=== PATIENT | female | born 1985 | race Caucasian/White ===

== ENCOUNTER 2017-11-28 19:31 | Emergency (ER) | payer OTHER ==
[~2017-11-28] VITALS: Ht 165.1 cm; Wt 120.2 kg
[~2017-11-28 19:31] MED LIST: ALBU.083IS IH; ALBU90OI INH; AMOX500 PO; CIPR500 PO; CLON1 PO; CYCL10 PO; Cymbalta30 MG; DULO30 PO; FLUSAL5005 INH; HYDACE5 PO; HYDMOR4 PO; KETO10 PO; Keflex500 MG PO; LOSA50 PO; LOSARTAN; NAPR500 PO; NAPR550 PO; Naprosyn500 MG PO; Norco 10-325 T1 EACH PO; Norco 5-325 Ta1 EACH PO; ONDA4ODT MM; Omeprazole20 M1; PHENA200 PO; PRODEXEL PO; PSEU120ER PO; Percocet 5-3251 EACH PO; Prednisone20 MG PO; RXHYDMOR2 PO; RXONDA4ODT MM; Ventolin Soln3 ML; Ventolin/Prove6.7 GM INH; Zithromax250 MG PO
[2017-11-28] MEDS ORDERED: BENZ100A PO (20:33)
== END 2017-11-28 20:40 | disposition home or self-care (01) ==
LOC: ER 19:31
DX: J11.1 Influenza due to unidentified influenza virus with other respiratory manifestations (principal); J45.909 Unspecified asthma, uncomplicated; F41.9 Anxiety disorder, unspecified; F32.9 Major depressive disorder, single episode, unspecified; I10 Essential (primary) hypertension; Z88.8 Allergy status to other drugs, medicaments and biological substances; Z91.018 Allergy to other foods; Z79.899 Other long term (current) drug therapy; Z79.52 Long term (current) use of systemic steroids
CPT/HCPCS: 99283

== ENCOUNTER 2018-02-16 12:51 | Emergency (ER) | payer OTHER ==
[~2018-02-16] VITALS: Ht 165.1 cm; Wt 145.2 kg
[~2018-02-16 12:51] MED LIST changes: +BENZ100A PO
[2018-02-16] MEDS ORDERED: GABA300 PO (13:12)
[2018-02-16] MEDS ORDERED: HYDHCL25 PO (13:13)
[2018-02-16 13:23] LABS: Source, Urine Peds U Bag
[2018-02-16 13:33] LABS: Appearance, Urine Hazy (Clear); Bilirubin, Urine Neg (Neg); Blood, Urine 1+ (Neg); Color, Urine Yellow (P-Yellow); Glucose Qualitative, Urine Neg (Neg); Ketones, Urine Neg (Neg); Leukocyte Esterase, Urine 1+ (Neg); Nitrite, Urine Pos (Neg); Protein, Urine Neg (Neg); Specific Gravity, Urine 1.015 (1.003-1.022); Urobilinogen, Urine NORM (Normal)
[2018-02-16 13:34] LABS: BASOPHILS ABSOLUTE AUTO 0.06 K/mm3 (0.00-0.23); BASOPHILS PERCENT AUTO 0 % (0-2); EOSINOPHILS PERCENT AUTO 1 % (0-6); Hematocrit 38.6 % (33.0-51.0); Hemoglobin 11.2 g/dL (11.5-16.0); IMMATURE GRAN ABSOLUTE AUTO 0.13 K/mm3 (0.00-0.10); IMMATURE GRAN PERCENT AUTO 1 % (0-1); LYMPHOCYTES ABSOLUTE AUTO 3.17 K/mm3 (0.84-5.20); LYMPHOCYTES PERCENT AUTO 18 % (21-46); MONOCYTES ABSOLUTE AUTO 0.97 K/mm3 (0.16-1.47); MONOCYTES PERCENT AUTO 5 % (4-13); Mean Corpuscular HGB 24.1 pg (26.0-34.0); Mean Corpuscular Volume 83 fL (80-100); Mean Platelet Volume 9.5 fL (9.1-12.4); NEUTROPHILS ABSOLUTE AUTO 13.51 K/mm3 (1.96-9.15); NEUTROPHILS PERCENT AUTO 75 % (41-73); Platelet Count 425 K/mm3 (150-400); RDW Coefficient Variation 15.8 % (11.7-14.2); RDW Standard Deviation 47.5 fL (35.1-46.3); Red Blood Cell Count 4.65 M/mm3 (3.80-5.20); White Blood Cell Count 17.94 K/mm3 (4.00-11.30)
[2018-02-16 13:50] LABS: Alanine Aminotransfer (ALT/SGP 17 U/L (12-78); Albumin/Globulin Ratio 0.7 (0.8-1.8); Alk Phos 115 U/L (50-136); Anion Gap 4 mmol/L (6-16); Aspartate Aminotrans (AST/SGOT 5 U/L (12-37); Bilirubin, Total 0.2 mg/dL (0.1-1.0); Blood Urea Nitrogen 8 mg/dL (8-24); Bun/Creatinine Ratio 12.5 (12.0-20.0); CO2, Blood 29 mmol/L (21-32); Calcium, Blood 8.5 mg/dL (8.5-10.1); Chloride, Blood 105 mmol/L (98-108); Creatinine, Blood 0.64 mg/dL (0.40-1.00); Globulin, Blood 4.3 g/dL (2.2-4.0); Glomerular Filtration Rate >60 (60-); Glucose, Blood 102 mg/dL (70-99); Potassium, Blood 3.8 mmol/L (3.5-5.5); Sodium, Blood 138 mmol/L (136-145); Total Protein, Blood 7.3 g/dL (6.4-8.2); Troponin I <0.015 ng/mL (0.000-0.040)
[2018-02-16 14:09] LABS: Bacteria Many /hpf; Squamous Epithelial Cells Mod /hpf (Few)
[2018-02-16] MEDS ORDERED: CEPH500 PO (14:21)
[2018-02-16] MEDS ORDERED: Norco 5-325 Ta1 EACH PO (14:21)
== END 2018-02-16 15:08 | disposition home or self-care (01) ==
LOC: ER 12:51
PROVIDERS: Emergency Medicine
DX: R07.89 Other chest pain (principal); F41.9 Anxiety disorder, unspecified; J06.9 Acute upper respiratory infection, unspecified; N39.0 Urinary tract infection, site not specified; J45.909 Unspecified asthma, uncomplicated; F32.9 Major depressive disorder, single episode, unspecified; I10 Essential (primary) hypertension; Z88.8 Allergy status to other drugs, medicaments and biological substances; Z91.018 Allergy to other foods; Z79.899 Other long term (current) drug therapy
CPT/HCPCS: 71046; 80053; 81001; 81025; 84484; 85025; 87077; 87086; 87186; 93005; 93010; J3010; J7030

== ENCOUNTER 2018-05-23 09:22 | Emergency (ER) | payer OTHER ==
[~2018-05-23] VITALS: Ht 165.1 cm; Wt 117.9 kg
[~2018-05-23 09:22] MED LIST changes: +CEPH500 PO; +GABA300 PO; +HYDHCL25 PO
[2018-05-23] MEDS ORDERED: DULO60 (09:51)
[2018-05-23] MEDS ORDERED: QVAR REDIHALE10.6 G1 IH (09:51)
[2018-05-23] MEDS ORDERED: HYDCHL12.5 PO (09:51)
[2018-05-23 10:48] LABS: BASOPHILS ABSOLUTE AUTO 0.05 K/mm3 (0.00-0.23); BASOPHILS PERCENT AUTO 0 % (0-2); EOSINOPHILS ABSOLUTE AUTO 0.11 K/mm3 (0.00-0.68); EOSINOPHILS PERCENT AUTO 1 % (0-6); Hematocrit 40.3 % (33.0-51.0); Hemoglobin 11.5 g/dL (11.5-16.0); IMMATURE GRAN ABSOLUTE AUTO 0.07 K/mm3 (0.00-0.10); IMMATURE GRAN PERCENT AUTO 1 % (0-1); LYMPHOCYTES ABSOLUTE AUTO 2.71 K/mm3 (0.84-5.20); LYMPHOCYTES PERCENT AUTO 18 % (21-46); MONOCYTES ABSOLUTE AUTO 0.69 K/mm3 (0.16-1.47); MONOCYTES PERCENT AUTO 5 % (4-13); Mean Corpuscular HGB Conc 28.5 g/dL (31.5-36.5); Mean Corpuscular Volume 80 fL (80-100); Mean Platelet Volume 9.4 fL (9.1-12.4); NEUTROPHILS ABSOLUTE AUTO 11.52 K/mm3 (1.96-9.15); NEUTROPHILS PERCENT AUTO 76 % (41-73); Platelet Count 395 K/mm3 (150-400); RDW Standard Deviation 50.8 fL (35.1-46.3); Red Blood Cell Count 5.01 M/mm3 (3.80-5.20); White Blood Cell Count 15.15 K/mm3 (4.00-11.30)
[2018-05-23 11:18] LABS: Alanine Aminotransfer (ALT/SGP 16 U/L (12-78); Albumin, Blood 3.1 g/dL (3.4-5.0); Albumin/Globulin Ratio 0.8 (0.8-1.8); Alk Phos 108 U/L (50-136); Anion Gap 8 mmol/L (6-16); Aspartate Aminotrans (AST/SGOT 8 U/L (12-37); Bilirubin, Total 0.4 mg/dL (0.1-1.0); Blood Urea Nitrogen 12 mg/dL (8-24); CO2, Blood 28 mmol/L (21-32); Calcium, Blood 8.2 mg/dL (8.5-10.1); Chloride, Blood 101 mmol/L (98-108); Creatinine, Blood 0.75 mg/dL (0.40-1.00); Glomerular Filtration Rate >60 (60-); Glucose, Blood 110 mg/dL (70-99); Sodium, Blood 137 mmol/L (136-145); Total Protein, Blood 7.1 g/dL (6.4-8.2)
== END 2018-05-23 12:14 | disposition home or self-care (01) ==
LOC: ER 09:22
PROVIDERS: Nurse Practitioner Family
DX: R55 Syncope and collapse (principal); F41.9 Anxiety disorder, unspecified; Z88.8 Allergy status to other drugs, medicaments and biological substances; Z91.018 Allergy to other foods; Z79.899 Other long term (current) drug therapy; J45.909 Unspecified asthma, uncomplicated; F32.9 Major depressive disorder, single episode, unspecified; I10 Essential (primary) hypertension
CPT/HCPCS: 36415; 71046; 80053; 84443; 85025; 93005; 93010

== ENCOUNTER → 2019-05-09 | Outpatient (CLI) | payer OTHER ==
[~2019-05-09] MED LIST changes: +DULO60; +HYDCHL12.5 PO; +QVAR REDIHALE10.6 G1 IH
[2019-05-10 14:07] LABS: HPV 16 Negative (Negative); HPV 18 Negative (Negative); HPV OTHER HR TYPES Positive (Negative)
== END | disposition home or self-care (01) ==
LOC: LAB SHORT 13:14 → LAB 13:14
PROVIDERS: Family Medicine
DX: Z01.419 Encounter for gynecological examination (general) (routine) without abnormal findings (principal)
CPT/HCPCS: 87624; 87625; G0145

== ENCOUNTER → 2019-07-10 | Outpatient (CLI) | payer OTHER | END | disposition home or self-care (01) | LOC: PLD 07:55 → LAB SHORT 07:55 | DX: R87.810 Cervical high risk human papillomavirus (HPV) DNA test positive (principal) | CPT/HCPCS: 88305 ==

== ENCOUNTER → 2020-03-17 | Outpatient (CLI) | payer OTHER | END | disposition home or self-care (01) | LOC: LAB SHORT 15:28 → LAB 15:28 | DX: J02.9 Acute pharyngitis, unspecified (principal) | CPT/HCPCS: 87081 ==

== ENCOUNTER 2020-05-22 19:06 | Emergency (ER) | payer OTHER ==
[~2020-05-22] VITALS: Ht 162.6 cm; Wt 127.0 kg
[2020-05-22 21:27] LABS: BASOPHILS ABSOLUTE AUTO 0.06 K/mm3 (0.00-0.23); BASOPHILS PERCENT AUTO 0 % (0-2); EOSINOPHILS ABSOLUTE AUTO 0.17 K/mm3 (0.00-0.68); EOSINOPHILS PERCENT AUTO 1 % (0-6); Hematocrit 38.6 % (33.0-51.0); Hemoglobin 10.9 g/dL (11.5-16.0); IMMATURE GRAN ABSOLUTE AUTO 0.07 K/mm3 (0.00-0.10); IMMATURE GRAN PERCENT AUTO 0 % (0-1); LYMPHOCYTES ABSOLUTE AUTO 3.29 K/mm3 (0.84-5.20); LYMPHOCYTES PERCENT AUTO 19 % (21-46); MONOCYTES PERCENT AUTO 5 % (4-13); Mean Corpuscular HGB 21.5 pg (26.0-34.0); Mean Corpuscular HGB Conc 28.2 g/dL (31.5-36.5); Mean Corpuscular Volume 76 fL (80-100); Mean Platelet Volume 9.2 fL (9.1-12.4); NEUTROPHILS ABSOLUTE AUTO 13.06 K/mm3 (1.96-9.15); NEUTROPHILS PERCENT AUTO 75 % (41-73); Platelet Count 366 K/mm3 (150-400); RDW Coefficient Variation 18.3 % (11.7-14.2); RDW Standard Deviation 49.9 fL (35.1-46.3); Red Blood Cell Count 5.06 M/mm3 (3.80-5.20); White Blood Cell Count 17.45 K/mm3 (4.00-11.30)
[2020-05-22 21:46] LABS: Anion Gap 6 mmol/L (6-16); Blood Urea Nitrogen 9 mg/dL (8-24); Bun/Creatinine Ratio 10.9 (12.0-20.0); CO2, Blood 29 mmol/L (21-32); Calcium, Blood 8.5 mg/dL (8.5-10.1); Chloride, Blood 104 mmol/L (98-108); Creatinine, Blood 0.82 mg/dL (0.40-1.00); Glomerular Filtration Rate >60 (60-); Glucose, Blood 91 mg/dL (70-99); Potassium, Blood 3.5 mmol/L (3.5-5.5); Sodium, Blood 139 mmol/L (136-145); Troponin I <0.015 ng/mL (0.000-0.040)
[2020-05-22] MEDS ORDERED: Vibramycin100 MG PO (23:13)
[2020-05-22] MEDS ORDERED: DELTASONE20 MG PO (23:13)
== END 2020-05-23 00:15 | disposition home or self-care (01) ==
LOC: ER 19:06
PROVIDERS: Student in an Organized Health Care Education/Training Program
DX: J18.9 Pneumonia, unspecified organism (principal); Z20.828 Contact with and (suspected) exposure to other viral communicable diseases; Z88.8 Allergy status to other drugs, medicaments and biological substances; Z91.018 Allergy to other foods; Z79.899 Other long term (current) drug therapy; I10 Essential (primary) hypertension; J45.909 Unspecified asthma, uncomplicated; F41.9 Anxiety disorder, unspecified; F32.9 Major depressive disorder, single episode, unspecified
CPT/HCPCS: 36415; 71046; 80048; 83880; 84484; 85025; 94640; 99285-25; U0002

== ENCOUNTER → 2020-08-18 | Outpatient (CLI) | payer OTHER ==
[~2020-08-18] MED LIST changes: +DELTASONE20 MG PO; +Vibramycin100 MG PO
== END | disposition home or self-care (01) ==
LOC: LAB SHORT 11:30 → LAB 11:30
DX: J02.9 Acute pharyngitis, unspecified (principal)
CPT/HCPCS: 87081

== ENCOUNTER 2020-09-22 08:02 | Emergency (ER) | payer OTHER ==
[~2020-09-22] VITALS: Ht 162.6 cm; Wt 154.2 kg
[2020-09-22 08:50] LABS: BASOPHILS ABSOLUTE AUTO 0.05 K/mm3 (0.00-0.23); BASOPHILS PERCENT AUTO 0 % (0-2); EOSINOPHILS ABSOLUTE AUTO 0.08 K/mm3 (0.00-0.68); EOSINOPHILS PERCENT AUTO 1 % (0-6); Hematocrit 37.6 % (33.0-51.0); Hemoglobin 10.4 g/dL (11.5-16.0); IMMATURE GRAN ABSOLUTE AUTO 0.06 K/mm3 (0.00-0.10); IMMATURE GRAN PERCENT AUTO 0 % (0-1); LYMPHOCYTES ABSOLUTE AUTO 2.54 K/mm3 (0.84-5.20); LYMPHOCYTES PERCENT AUTO 19 % (21-46); MONOCYTES ABSOLUTE AUTO 0.62 K/mm3 (0.16-1.47); MONOCYTES PERCENT AUTO 5 % (4-13); Mean Corpuscular HGB Conc 27.7 g/dL (31.5-36.5); Mean Corpuscular Volume 76 fL (80-100); Mean Platelet Volume 9.1 fL (9.1-12.4); NEUTROPHILS ABSOLUTE AUTO 10.29 K/mm3 (1.96-9.15); NEUTROPHILS PERCENT AUTO 76 % (41-73); Platelet Count 383 K/mm3 (150-400); RDW Coefficient Variation 18.7 % (11.7-14.2); RDW Standard Deviation 50.7 fL (35.1-46.3); Red Blood Cell Count 4.95 M/mm3 (3.80-5.20); White Blood Cell Count 13.64 K/mm3 (4.00-11.30)
[2020-09-22 09:08] LABS: Alanine Aminotransfer (ALT/SGP 13 U/L (12-78); Albumin, Blood 3.1 g/dL (3.4-5.0); Albumin/Globulin Ratio 0.8 (0.8-1.8); Alk Phos 96 U/L (50-136); Anion Gap 4 mmol/L (6-16); Aspartate Aminotrans (AST/SGOT 9 U/L (12-37); Bilirubin, Total 0.2 mg/dL (0.1-1.0); Blood Urea Nitrogen 8 mg/dL (8-24); Bun/Creatinine Ratio 12.7 (12.0-20.0); CO2, Blood 29 mmol/L (21-32); Calcium, Blood 8.4 mg/dL (8.5-10.1); Chloride, Blood 108 mmol/L (98-108); Creatinine, Blood 0.63 mg/dL (0.40-1.00); Globulin, Blood 3.9 g/dL (2.2-4.0); Glomerular Filtration Rate >60 (60-); Glucose, Blood 146 mg/dL (70-99); Potassium, Blood 3.9 mmol/L (3.5-5.5); Sodium, Blood 141 mmol/L (136-145); Troponin I <0.015 ng/mL (0.000-0.040)
[2020-09-22] MEDS ORDERED: TOPI50 PO (09:57)
[2020-09-22] MEDS ORDERED: RISP.5 PO (09:57)
[2020-09-22] MEDS ORDERED: PRED20 PO (12:26)
== END 2020-09-22 13:16 | disposition home or self-care (01) ==
LOC: ER 08:02
PROVIDERS: Emergency Medicine
DX: R07.9 Chest pain, unspecified (principal); J45.909 Unspecified asthma, uncomplicated; F41.9 Anxiety disorder, unspecified; F32.9 Major depressive disorder, single episode, unspecified; Z79.51 Long term (current) use of inhaled steroids; Z79.899 Other long term (current) drug therapy; Z88.8 Allergy status to other drugs, medicaments and biological substances; Z91.018 Allergy to other foods
CPT/HCPCS: 36415; 71045; 80053; 83880; 84484; 85025; 93005; 93010; 94640; 96374; 99285-25; J2930

== ENCOUNTER 2021-01-20 04:51 | Emergency (ER) | payer OTHER ==
[~2021-01-20 04:51] MED LIST changes: +PRED20 PO; +RISP.5 PO; +TOPI50 PO
[2021-01-20] MEDS ORDERED: TRAM50 PO (07:59)
== END 2021-01-20 08:10 | disposition home or self-care (01) ==
LOC: ER 04:51
DX: S06.9X9A Unspecified intracranial injury with loss of consciousness of unspecified duration, initial encounter (principal); S16.1XXA Strain of muscle, fascia and tendon at neck level, initial encounter; I10 Essential (primary) hypertension; J45.909 Unspecified asthma, uncomplicated; Z79.899 Other long term (current) drug therapy; W18.2XXA Fall in (into) shower or empty bathtub, initial encounter
CPT/HCPCS: 70450; 72125; 96374; 96375; 99283-25; 99284-25; A9270; J0780; J1200; J1885; J2405

== ENCOUNTER 2021-06-29 12:11 | Emergency (ER) | payer OTHER ==
[~2021-06-29] VITALS: Ht 160 cm; Wt 145.2 kg
[~2021-06-29 12:11] MED LIST changes: +TRAM50 PO
[2021-06-29 14:17] LABS: BASOPHILS ABSOLUTE AUTO 0.06 K/mm3 (0.00-0.23); BASOPHILS PERCENT AUTO 0 % (0-2); EOSINOPHILS ABSOLUTE AUTO 0.11 K/mm3 (0.00-0.68); EOSINOPHILS PERCENT AUTO 1 % (0-6); Hematocrit 37.4 % (33.0-51.0); Hemoglobin 10.3 g/dL (11.5-16.0); IMMATURE GRAN ABSOLUTE AUTO 0.06 K/mm3 (0.00-0.10); IMMATURE GRAN PERCENT AUTO 0 % (0-1); LYMPHOCYTES ABSOLUTE AUTO 2.45 K/mm3 (0.84-5.20); LYMPHOCYTES PERCENT AUTO 18 % (21-46); MONOCYTES ABSOLUTE AUTO 0.71 K/mm3 (0.16-1.47); MONOCYTES PERCENT AUTO 5 % (4-13); Mean Corpuscular HGB Conc 27.5 g/dL (31.5-36.5); Mean Corpuscular Volume 76 fL (80-100); Mean Platelet Volume 10.4 fL (9.1-12.4); NEUTROPHILS ABSOLUTE AUTO 10.23 K/mm3 (1.96-9.15); NEUTROPHILS PERCENT AUTO 75 % (41-73); Platelet Count 344 K/mm3 (150-400); RDW Coefficient Variation 18.4 % (11.7-14.2); RDW Standard Deviation 50.4 fL (35.1-46.3); Red Blood Cell Count 4.91 M/mm3 (3.80-5.20); White Blood Cell Count 13.62 K/mm3 (4.00-11.30)
[2021-06-29 15:06] LABS: SARS-Cov-2 (COVID-19) PCR, MMC NEGATIVE (NEGATIVE)
[2021-06-29 15:10] LABS: Alanine Aminotransfer (ALT/SGP 22 U/L (12-78); Alk Phos 94 U/L (50-136); Anion Gap 5 mmol/L (6-16); Aspartate Aminotrans (AST/SGOT 31 U/L (12-37); Bilirubin, Total 0.4 mg/dL (0.1-1.0); Blood Urea Nitrogen 9 mg/dL (8-24); Bun/Creatinine Ratio 12.5 (12.0-20.0); CO2, Blood 26 mmol/L (21-32); Calcium, Blood 8.3 mg/dL (8.5-10.1); Chloride, Blood 108 mmol/L (98-108); Creatinine, Blood 0.72 mg/dL (0.40-1.00); Glomerular Filtration Rate >60 (60-); Glucose, Blood 92 mg/dL (70-99); Potassium, Blood 4.2 mmol/L (3.5-5.5); Sodium, Blood 139 mmol/L (136-145); Troponin I <0.015 ng/mL (0.000-0.040)
[2021-06-29 15:16] LABS: Albumin/Globulin Ratio 0.8 (0.8-1.8); Globulin, Blood 3.6 g/dL (2.2-4.0); Total Protein, Blood 6.6 g/dL (6.4-8.2)
[2021-06-29] MEDS ORDERED: AZIT250 PO (16:23)
== END 2021-06-29 16:29 | disposition home or self-care (01) ==
LOC: ER 12:11
PROVIDERS: Student in an Organized Health Care Education/Training Program
DX: J18.9 Pneumonia, unspecified organism (principal); R19.7 Diarrhea, unspecified; J45.909 Unspecified asthma, uncomplicated; R11.2 Nausea with vomiting, unspecified; I10 Essential (primary) hypertension; D64.9 Anemia, unspecified; Z88.8 Allergy status to other drugs, medicaments and biological substances; Z20.822 Contact with and (suspected) exposure to COVID-19
CPT/HCPCS: 71045; 80053; 83690; 84484; 85025; 94640; 96361; 96374; 99285-25; A9270; J1885; J7030; U0004

== ENCOUNTER → 2021-08-13 | Outpatient (CLI) | payer OTHER ==
[~2021-08-13] MED LIST changes: +AZIT250 PO
[2021-08-13 18:25] LABS: BASOPHILS ABSOLUTE AUTO 0.07 K/mm3 (0.00-0.23); BASOPHILS PERCENT AUTO 0 % (0-2); EOSINOPHILS ABSOLUTE AUTO 0.11 K/mm3 (0.00-0.68); EOSINOPHILS PERCENT AUTO 1 % (0-6); Hematocrit 40.7 % (33.0-51.0); Hemoglobin 11.3 g/dL (11.5-16.0); IMMATURE GRAN ABSOLUTE AUTO 0.19 K/mm3 (0.00-0.10); IMMATURE GRAN PERCENT AUTO 1 % (0-1); LYMPHOCYTES ABSOLUTE AUTO 3.56 K/mm3 (0.84-5.20); LYMPHOCYTES PERCENT AUTO 17 % (21-46); MONOCYTES PERCENT AUTO 5 % (4-13); Mean Corpuscular HGB 20.7 pg (26.0-34.0); Mean Corpuscular HGB Conc 27.8 g/dL (31.5-36.5); Mean Corpuscular Volume 75 fL (80-100); Mean Platelet Volume 9.1 fL (9.1-12.4); NEUTROPHILS ABSOLUTE AUTO 16.24 K/mm3 (1.96-9.15); NEUTROPHILS PERCENT AUTO 77 % (41-73); Platelet Count 460 K/mm3 (150-400); RDW Coefficient Variation 19.9 % (11.7-14.2); RDW Standard Deviation 51.8 fL (35.1-46.3); Red Blood Cell Count 5.45 M/mm3 (3.80-5.20); White Blood Cell Count 21.17 K/mm3 (4.00-11.30)
[2021-08-13 18:57] LABS: Alanine Aminotransfer (ALT/SGP 26 U/L (12-78); Albumin, Blood 3.1 g/dL (3.4-5.0); Albumin/Globulin Ratio 0.8 (0.8-1.8); Alk Phos 103 U/L (50-136); Anion Gap 3 mmol/L (6-16); Aspartate Aminotrans (AST/SGOT 10 U/L (12-37); Bilirubin, Total 0.3 mg/dL (0.1-1.0); Blood Urea Nitrogen 12 mg/dL (8-24); Bun/Creatinine Ratio 18.3 (12.0-20.0); CO2, Blood 33 mmol/L (21-32); Calcium, Blood 8.8 mg/dL (8.5-10.1); Chloride, Blood 102 mmol/L (98-108); Creatinine, Blood 0.66 mg/dL (0.40-1.00); Globulin, Blood 3.9 g/dL (2.2-4.0); Glomerular Filtration Rate >60 (60-); Glucose, Blood 128 mg/dL (70-99); Potassium, Blood 3.8 mmol/L (3.5-5.5); Sodium, Blood 138 mmol/L (136-145)
== END | disposition home or self-care (01) ==
LOC: LAB 18:14 → LAB SHORT 18:14
PROVIDERS: Nurse Practitioner
DX: R06.02 Shortness of breath (principal)
CPT/HCPCS: 80053; 83880; 85025

== ENCOUNTER → 2021-08-19 | Outpatient (CLI) | payer OTHER ==
[2021-08-19 13:06] LABS: BASOPHILS ABSOLUTE AUTO 0.05 K/mm3 (0.00-0.23); BASOPHILS PERCENT AUTO 0 % (0-2); EOSINOPHILS ABSOLUTE AUTO 0.01 K/mm3 (0.00-0.68); EOSINOPHILS PERCENT AUTO 0 % (0-6); Hematocrit 37.7 % (33.0-51.0); Hemoglobin 10.4 g/dL (11.5-16.0); IMMATURE GRAN ABSOLUTE AUTO 0.23 K/mm3 (0.00-0.10); IMMATURE GRAN PERCENT AUTO 1 % (0-1); LYMPHOCYTES ABSOLUTE AUTO 1.79 K/mm3 (0.84-5.20); LYMPHOCYTES PERCENT AUTO 8 % (21-46); MONOCYTES ABSOLUTE AUTO 0.88 K/mm3 (0.16-1.47); MONOCYTES PERCENT AUTO 4 % (4-13); Mean Corpuscular HGB 20.9 pg (26.0-34.0); Mean Corpuscular HGB Conc 27.6 g/dL (31.5-36.5); Mean Corpuscular Volume 76 fL (80-100); NEUTROPHILS ABSOLUTE AUTO 18.59 K/mm3 (1.96-9.15); NEUTROPHILS PERCENT AUTO 86 % (41-73); NRBC ABSOLUTE 0.02 K/mm3 (0.00-0.02); NRBC Auto 0.1 /100 WBC (0.0-0.2); Platelet Count 401 K/mm3 (150-400); RDW Coefficient Variation 20.8 % (11.7-14.2); RDW Standard Deviation 53.9 fL (35.1-46.3); Red Blood Cell Count 4.98 M/mm3 (3.80-5.20); White Blood Cell Count 21.55 K/mm3 (4.00-11.30)
[2021-08-19 13:16] LABS: Alanine Aminotransfer (ALT/SGP 27 U/L (12-78); Albumin, Blood 3.2 g/dL (3.4-5.0); Albumin/Globulin Ratio 0.8 (0.8-1.8); Alk Phos 111 U/L (40-126); Anion Gap 5 mmol/L (6-16); Aspartate Aminotrans (AST/SGOT 13 U/L (12-37); Bilirubin, Total 0.4 mg/dL (0.1-1.0); Blood Urea Nitrogen 12 mg/dL (8-24); Bun/Creatinine Ratio 15.8 (12.0-20.0); CO2, Blood 35 mmol/L (21-32); Calcium, Blood 8.3 mg/dL (8.5-10.1); Chloride, Blood 100 mmol/L (98-108); Creatinine, Blood 0.76 mg/dL (0.40-1.00); Glomerular Filtration Rate >60 (60-); Glucose, Blood 148 mg/dL (70-99); Potassium, Blood 4.2 mmol/L (3.5-5.5); Sodium, Blood 140 mmol/L (136-145); Total Protein, Blood 7.2 g/dL (6.4-8.2)
== END | disposition home or self-care (01) ==
LOC: LAB 13:01 → LAB SHORT 13:01
PROVIDERS: Chiropractor
DX: R09.02 Hypoxemia (principal)
CPT/HCPCS: 80053; 83880; 84484; 85025; 85379

== ENCOUNTER 2022-02-27 19:53 | Emergency (ER) | payer OTHER ==
[~2022-02-27] VITALS: Ht 162.6 cm; Wt 164.2 kg
[2022-02-27 21:08] LABS: BASOPHILS ABSOLUTE AUTO 0.06 K/mm3 (0.00-0.23); BASOPHILS PERCENT AUTO 0 % (0-2); EOSINOPHILS ABSOLUTE AUTO 0.08 K/mm3 (0.00-0.68); EOSINOPHILS PERCENT AUTO 1 % (0-6); Hematocrit 39.3 % (33.0-51.0); Hemoglobin 10.9 g/dL (11.5-16.0); IMMATURE GRAN ABSOLUTE AUTO 0.13 K/mm3 (0.00-0.10); IMMATURE GRAN PERCENT AUTO 1 % (0-1); LYMPHOCYTES PERCENT AUTO 15 % (21-46); MONOCYTES ABSOLUTE AUTO 0.86 K/mm3 (0.16-1.47); MONOCYTES PERCENT AUTO 5 % (4-13); Mean Corpuscular HGB 21.2 pg (26.0-34.0); Mean Corpuscular HGB Conc 27.7 g/dL (31.5-36.5); Mean Corpuscular Volume 77 fL (80-100); Mean Platelet Volume 9.5 fL (9.1-12.4); NEUTROPHILS ABSOLUTE AUTO 13.65 K/mm3 (1.96-9.15); NEUTROPHILS PERCENT AUTO 79 % (41-73); NRBC ABSOLUTE 0.04 K/mm3 (0.00-0.02); NRBC Auto 0.2 /100 WBC (0.0-0.2); Platelet Count 422 K/mm3 (150-400); RDW Coefficient Variation 20.9 % (11.7-14.2); RDW Standard Deviation 55.9 fL (35.1-46.3); Red Blood Cell Count 5.14 M/mm3 (3.80-5.20); White Blood Cell Count 17.38 K/mm3 (4.00-11.30)
[2022-02-27 21:43] LABS: Alanine Aminotransfer (ALT/SGP 30 U/L (12-78); Albumin/Globulin Ratio 0.8 (0.8-1.8); Alk Phos 107 U/L (50-136); Anion Gap 2 mmol/L (6-16); Aspartate Aminotrans (AST/SGOT 15 U/L (12-37); Bilirubin, Total 0.3 mg/dL (0.1-1.0); Blood Urea Nitrogen 11 mg/dL (8-24); Bun/Creatinine Ratio 16.8 (12.0-20.0); CO2, Blood 34 mmol/L (21-32); Calcium, Blood 8.5 mg/dL (8.5-10.1); Chloride, Blood 102 mmol/L (98-108); Creatinine, Blood 0.65 mg/dL (0.40-1.00); Globulin, Blood 3.7 g/dL (2.2-4.0); Glomerular Filtration Rate >60 (60-); Glucose, Blood 140 mg/dL (70-99); Potassium, Blood 4.3 mmol/L (3.5-5.5); Sodium, Blood 138 mmol/L (136-145); Total Protein, Blood 6.7 g/dL (6.4-8.2)
[2022-02-27 21:50] LABS: Influenza A, PCR NEGATIVE (NEGATIVE); Influenza B, PCR NEGATIVE (NEGATIVE); Resp Syncytial Virus, PCR NEGATIVE (NEGATIVE); SARS-Cov-2 (COVID-19) PCR, MMC NEGATIVE (NEGATIVE)
[2022-02-27] MEDS ORDERED: ONDA4ODT MM (23:55)
== END 2022-02-28 00:07 | disposition home or self-care (01) ==
LOC: ER 19:53
PROVIDERS: Student in an Organized Health Care Education/Training Program
DX: B34.9 Viral infection, unspecified (principal); Z20.822 Contact with and (suspected) exposure to COVID-19; I10 Essential (primary) hypertension; Z79.899 Other long term (current) drug therapy
CPT/HCPCS: 0241U; 36415; 71045; 80053; 83690; 84484; 85025; 93005; 93010; 96374; 96375; 99284-25; A9270; J1885; J2765

== ENCOUNTER → 2022-07-07 | Outpatient (CLI) | payer OTHER ==
[2022-07-09 14:09] LABS: COTININE Negative ng/mL (Cutoff=300)
== END | disposition home or self-care (01) ==
LOC: LAB 15:50 → LAB SHORT 15:50
PROVIDERS: Student in an Organized Health Care Education/Training Program
DX: Z01.812 Encounter for preprocedural laboratory examination (principal)

== ENCOUNTER 2022-08-17 15:34 | Emergency (ER) | payer OTHER ==
[~2022-08-17] VITALS: Ht 160 cm; Wt 161.0 kg
[2022-08-17 16:42] LABS: BASOPHILS ABSOLUTE AUTO 0.06 K/mm3 (0.00-0.23); BASOPHILS PERCENT AUTO 0 % (0-2); EOSINOPHILS ABSOLUTE AUTO 0.15 K/mm3 (0.00-0.68); EOSINOPHILS PERCENT AUTO 1 % (0-6); Hematocrit 36.8 % (33.0-51.0); Hemoglobin 10.8 g/dL (11.5-16.0); IMMATURE GRAN ABSOLUTE AUTO 0.09 K/mm3 (0.00-0.10); IMMATURE GRAN PERCENT AUTO 1 % (0-1); LYMPHOCYTES ABSOLUTE AUTO 2.94 K/mm3 (0.84-5.20); LYMPHOCYTES PERCENT AUTO 17 % (21-46); MONOCYTES ABSOLUTE AUTO 0.77 K/mm3 (0.16-1.47); MONOCYTES PERCENT AUTO 4 % (4-13); Mean Corpuscular HGB 22.6 pg (26.0-34.0); Mean Corpuscular HGB Conc 29.3 g/dL (31.5-36.5); Mean Corpuscular Volume 77 fL (80-100); Mean Platelet Volume 9.5 fL (9.1-12.4); NEUTROPHILS ABSOLUTE AUTO 13.34 K/mm3 (1.96-9.15); NEUTROPHILS PERCENT AUTO 77 % (41-73); Platelet Count 358 K/mm3 (150-400); RDW Coefficient Variation 19.8 % (11.7-14.2); RDW Standard Deviation 54.7 fL (35.1-46.3); Red Blood Cell Count 4.78 M/mm3 (3.80-5.20); White Blood Cell Count 17.35 K/mm3 (4.00-11.30)
[2022-08-17 17:02] LABS: Albumin, Blood 3.2 g/dL (3.4-5.0); Albumin/Globulin Ratio 0.9 (0.8-1.8); Bilirubin, Total 0.3 mg/dL (0.1-1.0); Bun/Creatinine Ratio 18.1 (12.0-20.0); Calcium, Blood 8.9 mg/dL (8.5-10.1); Creatinine, Blood 0.72 mg/dL (0.40-1.00); Globulin, Blood 3.4 g/dL (2.2-4.0); Potassium, Blood 3.7 mmol/L (3.5-5.5); Total Protein, Blood 6.6 g/dL (6.4-8.2)
[2022-08-17 21:26] LABS: Influenza A, PCR NEGATIVE (NEGATIVE); Influenza B, PCR NEGATIVE (NEGATIVE); Resp Syncytial Virus, PCR NEGATIVE (NEGATIVE); SARS-Cov-2 (COVID-19) PCR, MMC NEGATIVE (NEGATIVE)
== END 2022-08-17 21:34 | disposition home or self-care (01) ==
LOC: ER 15:34
PROVIDERS: Physician Assistant
DX: J40 Bronchitis, not specified as acute or chronic (principal); R60.0 Localized edema; I10 Essential (primary) hypertension; Z20.822 Contact with and (suspected) exposure to COVID-19; Z88.8 Allergy status to other drugs, medicaments and biological substances; Z79.899 Other long term (current) drug therapy
CPT/HCPCS: 0241U; 36415; 71046; 80053; 83880; 84484; 85025; 93005; 93010; 96374; 99284-25; J1940

== ENCOUNTER → 2022-08-20 | Outpatient (CLI) | payer OTHER ==
[2022-08-20 16:52] LABS: Albumin, Blood 3.3 g/dL (3.4-5.0); Albumin/Globulin Ratio 0.9 (0.8-1.8); Bilirubin, Total 0.4 mg/dL (0.1-1.0); Bun/Creatinine Ratio 13.2 (12.0-20.0); Calcium, Blood 8.6 mg/dL (8.5-10.1); Creatinine, Blood 0.76 mg/dL (0.40-1.00); Globulin, Blood 3.7 g/dL (2.2-4.0); Potassium, Blood 3.9 mmol/L (3.5-5.5)
== END | disposition home or self-care (01) ==
LOC: LAB 16:36 → LAB SHORT 16:36
PROVIDERS: Physician Assistant Surgical
DX: R07.81 Pleurodynia (principal)
CPT/HCPCS: 80053

== ENCOUNTER 2022-10-10 16:37 | Emergency (ER) | payer OTHER ==
[2022-10-10] MEDS ORDERED: IBUP800 PO (18:16)
== END 2022-10-10 18:43 | disposition home or self-care (01) ==
DX: M76.9 Unspecified enthesopathy, lower limb, excluding foot (principal); J45.909 Unspecified asthma, uncomplicated; I10 Essential (primary) hypertension; Z88.8 Allergy status to other drugs, medicaments and biological substances; Z79.899 Other long term (current) drug therapy

== ENCOUNTER 2023-01-16 17:51 | Emergency (ER) | payer OTHER ==
[~2023-01-16] VITALS: Ht 165.1 cm; Wt 158.8 kg
[~2023-01-16 17:51] MED LIST changes: +IBUP800 PO
[2023-01-16] MEDS ORDERED: FERSU90EL (18:26)
[2023-01-16] MEDS ORDERED: BUDESONIDE-FO10.2 G2 IH (18:26)
[2023-01-16] MEDS ORDERED: LOSA25 PO (18:26)
[2023-01-16] MEDS ORDERED: FUROSEMIDE40 MG PO (18:26)
[2023-01-16] MEDS ORDERED: OMEP20ER PO (18:27)
[2023-01-16] MEDS ORDERED: PREGABALIN100 MG PO (18:27)
[2023-01-16 19:55] LABS: Hematocrit 38.3 % (33.0-51.0); Hemoglobin 11.1 g/dL (11.5-16.0); Mean Corpuscular HGB 22.1 pg (26.0-34.0); Mean Corpuscular Volume 76 fL (80-100); Mean Platelet Volume 9.6 fL (9.1-12.4); Platelet Count 284 K/mm3 (150-400); RDW Coefficient Variation 18.8 % (11.7-14.2); RDW Standard Deviation 50.8 fL (35.1-46.3); Red Blood Cell Count 5.03 M/mm3 (3.80-5.20); White Blood Cell Count 15.22 K/mm3 (4.00-11.30)
[2023-01-16 19:55] LABS: Influenza A, PCR NEGATIVE (NEGATIVE); Influenza B, PCR NEGATIVE (NEGATIVE); Resp Syncytial Virus, PCR NEGATIVE (NEGATIVE); SARS-Cov-2 (COVID-19) PCR, MMC NEGATIVE (NEGATIVE)
[2023-01-16 20:26] LABS: BAND PERCENT MAN 1 % (0-8); BASOPHILS PERCENT MAN 0 % (0-2); EOSINOPHILS PERCENT MAN 0 % (0-6); LYMPHOCYTES ABSOLUTE MAN 3.95 K/mm3 (0.84-5.20); LYMPHOCYTES PERCENT MAN 26 % (21-46); MONOCYTES ABSOLUTE MAN 0.76 K/mm3 (0.16-1.47); MONOCYTES PERCENT MAN 5 % (4-13); MYELOCYTE ABSOLUTE MAN 0.15 K/mm3 (0.00-0.00); MYELOCYTE PERCENT MAN 1 % (0-0); NEUTROPHILS ABSOLUTE MAN 10.34 K/mm3 (1.96-9.15); SEG NEUTROPHILS PERCENT MAN 67 % (41-73); TOTAL CELLS COUNTED 100
[2023-01-16 20:32] LABS: Albumin/Globulin Ratio 0.8 (0.8-1.8); Bilirubin, Total 0.4 mg/dL (0.1-1.0); Bun/Creatinine Ratio 17.2 (12.0-20.0); Calcium, Blood 8.2 mg/dL (8.5-10.1); Creatinine, Blood 0.7 mg/dL (0.40-1.00); Potassium, Blood 3.6 mmol/L (3.5-5.5)
== END 2023-01-16 21:35 | disposition home or self-care (01) ==
LOC: ER 17:51
PROVIDERS: Emergency Medicine; Physician Assistant
DX: B34.9 Viral infection, unspecified (principal); Z20.822 Contact with and (suspected) exposure to COVID-19; Z79.52 Long term (current) use of systemic steroids; Z79.899 Other long term (current) drug therapy
CPT/HCPCS: 0241U; 36415; 71046; 80053; 83880; 84484; 85025; 93005; 93010; 96374; 99284-25; A9270; J1885

== ENCOUNTER 2023-04-10 10:25 | Inpatient (IN) | payer OTHER ==
[~2023-04-10] VITALS: Ht 162.6 cm; Wt 172.9 kg
[~2023-04-10 10:25] MED LIST changes: +BUDESONIDE-FO10.2 G2 IH; +FERSU300 PO; +FERSU90EL; +FUROSEMIDE40 MG PO; +LOSA25 PO; +OMEP20ER PO; +POTCHL20ER PO; +PREGABALIN100 MG PO
[2023-04-10 14:08] LABS: BASOPHILS ABSOLUTE AUTO 0.05 K/mm3 (0.00-0.23); BASOPHILS PERCENT AUTO 0 % (0-2); EOSINOPHILS ABSOLUTE AUTO 0.09 K/mm3 (0.00-0.68); EOSINOPHILS PERCENT AUTO 1 % (0-6); Hematocrit 41.1 % (33.0-51.0); Hemoglobin 11.5 g/dL (11.5-16.0); IMMATURE GRAN ABSOLUTE AUTO 0.06 K/mm3 (0.00-0.10); IMMATURE GRAN PERCENT AUTO 1 % (0-1); LYMPHOCYTES PERCENT AUTO 18 % (21-46); MONOCYTES ABSOLUTE AUTO 0.64 K/mm3 (0.16-1.47); MONOCYTES PERCENT AUTO 5 % (4-13); Mean Corpuscular HGB 21.8 pg (26.0-34.0); Mean Corpuscular Volume 78 fL (80-100); NEUTROPHILS ABSOLUTE AUTO 9.54 K/mm3 (1.96-9.15); NEUTROPHILS PERCENT AUTO 75 % (41-73); Platelet Count 339 K/mm3 (150-400); RDW Coefficient Variation 19.2 % (11.7-14.2); RDW Standard Deviation 53.2 fL (35.1-46.3); Red Blood Cell Count 5.28 M/mm3 (3.80-5.20); White Blood Cell Count 12.68 K/mm3 (4.00-11.30)
[2023-04-10 14:17] LABS: Bun/Creatinine Ratio 16.4 (12.0-20.0); Calcium, Blood 8.6 mg/dL (8.5-10.1); Creatinine, Blood 0.61 mg/dL (0.40-1.00)
[2023-04-10 15:06] LABS: PCO2 Arterial 59.1 mmHg (35-45); pH Blood Arterial 7.36 (7.35-7.45)
[2023-04-10 17:35] VITALS: BP 193/113
--- NOTE | 2023-04-10 18:14 | NUR ---
ADMISSION/SHIFT SUMMARY PT ARRIVED TO PCU AT 1730. SPO2 MAINTAINED >90% VIA BIPAP, PRESSURE 22/16 W/ 6L BLEED. PT APPEARED SOMNOLENT BUT WOKE TO VERBAL STIMULI AND WAS ABLE TO STAND/PIVOT TO BED TO TRANSFER. SHE STATED SHE NEEDED TO USE THE BATHROOM AND SHE WAS ABLE TO USE BEDSIDE COMMODE 2-3 PERSON ASSIST STAND PIVOT. BP NOTED TO BE ELEVATED W/ SBP AT 193, HYDRALIZINE GIVEN PER EMAR ORDERS. SPO2 DIPPED TO 85% SO 02 INCREASED TO 11L BLEED IN BIPAP. DUE TO SOMNOLENCE, THIS NURSE WAS UNABLE TO FULLY ASSESS NEURO FUNCTION INCLUDING ORIENTATION. BILAT IV'S ARE PATENT AND SALINE LOCKED. NO COUGH NOTED. WILL MONITOR UNTIL REPORT GIVEN. CALL LIGHT IS IN REACH.
[2023-04-10 19:15] LABS: Adenovirus Not Detected (NOT DETECT); Bordetella pertussis Not Detected (NOT DETECT); Chlamydophila pneumoniae Not Detected (NOT DETECT); Coronavirus 229E Not Detected (NOT DETECT); Coronavirus HKU1 Not Detected (NOT DETECT); Coronavirus NL63 Not Detected (NOT DETECT); Coronavirus OC43 Not Detected (NOT DETECT); Human Metapneumovirus Not Detected (NOT DETECT); Human Rhinovirus/Enterovirus Not Detected (NOT DETECT); Influenza A/2009-H1 Not Detected (NOT DETECT); Influenza A/H1 Not Detected (NOT DETECT); Influenza A/H3 Not Detected (NOT DETECT); Influenza B Not Detected (NOT DETECT); Mycoplasma pneumoniae Not Detected (NOT DETECT); Parainfluenza Virus 1 Not Detected (NOT DETECT); Parainfluenza Virus 2 Not Detected (NOT DETECT); Parainfluenza Virus 3 Not Detected (NOT DETECT); Parainfluenza Virus 4 Not Detected (NOT DETECT); Respiratory Syncytial Virus Not Detected (NOT DETECT); SARS-Cov-2 (COVID-19), BioFire Not Detected (NOT DETECT)
[2023-04-10 19:40] VITALS: BP 168/98
[2023-04-10 23:30] VITALS: BP 151/87
[2023-04-11] VITALS (7 sets, daily range): BP systolic 161–185; BP diastolic 88–100
[2023-04-11 04:36] LABS: BASOPHILS ABSOLUTE AUTO 0.01 K/mm3 (0.00-0.23); BASOPHILS PERCENT AUTO 0 % (0-2); EOSINOPHILS ABSOLUTE AUTO 0.01 K/mm3 (0.00-0.68); EOSINOPHILS PERCENT AUTO 0 % (0-6); Hematocrit 41.6 % (33.0-51.0); Hemoglobin 11.7 g/dL (11.5-16.0); IMMATURE GRAN ABSOLUTE AUTO 0.09 K/mm3 (0.00-0.10); IMMATURE GRAN PERCENT AUTO 1 % (0-1); LYMPHOCYTES ABSOLUTE AUTO 1.09 K/mm3 (0.84-5.20); LYMPHOCYTES PERCENT AUTO 8 % (21-46); MONOCYTES ABSOLUTE AUTO 0.11 K/mm3 (0.16-1.47); MONOCYTES PERCENT AUTO 1 % (4-13); Mean Corpuscular HGB 21.5 pg (26.0-34.0); Mean Corpuscular HGB Conc 28.1 g/dL (31.5-36.5); Mean Corpuscular Volume 77 fL (80-100); Mean Platelet Volume 9.6 fL (9.1-12.4); NEUTROPHILS ABSOLUTE AUTO 12.69 K/mm3 (1.96-9.15); NEUTROPHILS PERCENT AUTO 91 % (41-73); Platelet Count 348 K/mm3 (150-400); RDW Coefficient Variation 19.4 % (11.7-14.2); RDW Standard Deviation 52.2 fL (35.1-46.3); Red Blood Cell Count 5.44 M/mm3 (3.80-5.20)
[2023-04-11 04:59] LABS: Albumin, Blood 3.2 g/dL (3.4-5.0); Albumin/Globulin Ratio 0.8 (0.8-1.8); Bilirubin, Total 0.4 mg/dL (0.1-1.0); Calcium, Blood 8.7 mg/dL (8.5-10.1); Creatinine, Blood 0.63 mg/dL (0.40-1.00); Globulin, Blood 3.9 g/dL (2.2-4.0); Total Protein, Blood 7.1 g/dL (6.4-8.2)
[2023-04-11] MEDS ORDERED: BUME2 PO (05:44)
--- NOTE | 2023-04-11 06:19 | NUR ---
SHIFT SUMMARY PATIENT ALERT AND ORIENTED X4. IS ABLE TO TRANSFER TO THE BEDSIDE COMMODE WITH MINIMAL ASSISTANCE, BUT BECOMES SHORT OF BREATH WITH EXERTION. PATIENT SLEPT WITH BIPAP, SETTINGS 22/16 WITH 6 LITER BLEED, AND ON 4 LITERS O2 WHILE AWAKE. SPO2 >90%. PATIENT TREATED WITH HYDRALAZINE FOR BLOOD PRESSURE. HEART RATE SINUS RHYTHM TO SINUS TACH IN LOW 100'S ON TELE. PATIENT WANTED TO USE HER HOME BIPAP BUT IT WAS FOUND TO HAVE SMALL COCKROACHES CRAWLING ON IT, BIPAP BAGGED UP. PATIENT STATED THAT SHE WAS UNAWARE THAT THEY WERE THERE AND THAT SHE RECENTLY MOVED INTO A NEW PLACE ABOUT 3 WEEKS AGO. WILL CONTINUE TO MONITOR. CALL LIGHT WITHIN REACH.
--- NOTE | 2023-04-11 09:20 | NUR ---
AM NOTE: PT ALERT AND ORIENTED X4, ABLE TO ANSWER QUESTIONS AND MAKE NEEDS KNOWN. PT ABLE TO AMBULATE TO THE BATHROOM WITH MINIMAL ASSIST. PT TITRATED OFF THE NASAL CANNULA TO RA AND MAINTAINING SPO2> 94%. PT HAS NO C/O SOB, CHEST PAIN OR PRESSURE. PT HAD ECHO DONE THIS MORNING WITH RESULTS PENDING. PT ABLE TO EAT BREAKFAST THIS MORNING INDEPENDENTLY. PT MADE MEDICAL STATUS WITH NO TELE PER DR. LANDRY. WILL CONTINUE TO MONITOR T/O THE SHIFT.
--- NOTE | 2023-04-11 17:33 | NUR ---
SHIFT SUMMARY: NO ACUTE EVENTS T/O THE SHIFT. PT CONTINUES TO REMIAN ALERT AND ORIENTED AND IS PLEASANT AND COOPERATIVE WITH CARE. PT SBP 180'S, MEDICATED PER JAN. HR 110'S-120'S. NO C/O CHEST PAIN, PRESSURE OR SOB. PT ABLE TO AMBULATE TO THE BATHROOM AND SHOWERED INDEPENDENTLY. PT BLOOD SUGAR ELEVATED RANGING IN THE 200-400'S. PT STARTED ON A MEDIUM CORRECTION SCALE OF LISPRO INSULIN PER PROVIDER. PT CONTINUES TO REMAIN ON RA WITH SPO2 >90%. PT MEDICAL STATUS WITH NO TELEMETRY. WILL CONTINUE TO MONITOR AND GIVE REPORT TO ONCOMING NOC SHIFT RN.
[2023-04-12 04:50] VITALS: BP 160/95
[2023-04-12 05:52] LABS: Bun/Creatinine Ratio 31.4 (12.0-20.0); Creatinine, Blood 0.61 mg/dL (0.40-1.00); Potassium, Blood 4.4 mmol/L (3.5-5.5)
--- NOTE | 2023-04-12 06:00 | NUR ---
SHIFT SUMMARY PATIENT ALERT AND ORIENTED X4. HAD NO COMPLAINTS OF PAIN OR SHORTNESS OF BREATH. PATIENT ON ROOM AIR WHILE AWAKE AND BIPAP WITH 6L O2 BLEED WHILE SLEEPING. VITAL SIGNS STABLE. NO ACUTE ISSUES NOTED OVERNIGHT. WILL CONTINUE TO MONITOR. CALL LIGHT WITHIN REACH.
[2023-04-12 07:31] VITALS: BP 150/96
--- NOTE | 2023-04-12 09:26 | NUR ---
AM NOTE: PT ALERT AND ORIENTED X4, ABLE TO ANSWER QUESTIONS AND MAKE NEEDS KNOWN. PT UP TO THE SHOWER THIS AM INDEPENDENTLY. PT SBP 150'S WITH HR IN THE 100'S. PT HAS NO C/O CHEST PAIN, PRESSURE OR SOB. PT CONTINUES TO REMAIN ON RA WITH SPO2 MAINTAINING GREATER THAN 90%. PLANS FOR [facility] TO DELIVER A NEW TRILOGY MACHINE FOR THE PATIENT AND THEN SHE CAN D/C HOME. WILL CONTINUE TO MONITOR T/O THE SHIFT.
[2023-04-12] MEDS ORDERED: PRED20 PO (10:07)
[2023-04-12] MEDS ORDERED: METF500 PO (10:07)
[2023-04-12] MEDS ORDERED: ALBU90OI INH (11:29)
--- NOTE | 2023-04-12 16:06 | NUR ---
DISCHARGE SUMMARY: PT TRILOGY ARRIVED FROM [facility] AND SENT HOME WITH THE PT UPON DISCHARGE. PT LEFT IN WHEELCHAIR WITH SON. PT IV'S PULLED AND INTACT. ALL BELONGINGS SENT HOME WITH PT. PT RECEIVED COPY OF DISCHARGE INSTRUCTIONS.
== END 2023-04-12 15:51 | disposition home or self-care (01) | DRG 189 ==
LOC: ER 10:25 → PCU 15:46
PROVIDERS: Emergency Medicine; Family Medicine Adult Medicine; ADMIT Hospitalist
PROC: 4A033R1 Measurement of Arterial Saturation, Peripheral, Percutaneous Approach (ICD-10-PCS; principal; 2023-04-10)
PROC: 5A09357 Assistance with Respiratory Ventilation, Less than 24 Consecutive Hours, Continuous Positive Airway Pressure (ICD-10-PCS; 2023-04-12)
DX: J96.01 Acute respiratory failure with hypoxia (principal); R65.11 Systemic inflammatory response syndrome (SIRS) of non-infectious origin with acute organ dysfunction; Z68.43 Body mass index [BMI] 50.0-59.9, adult; J45.901 Unspecified asthma with (acute) exacerbation; E66.2 Morbid (severe) obesity with alveolar hypoventilation; E87.29 Other acidosis; J96.02 Acute respiratory failure with hypercapnia; F31.9 Bipolar disorder, unspecified; M79.7 Fibromyalgia; K21.9 Gastro-esophageal reflux disease without esophagitis; F41.9 Anxiety disorder, unspecified; R73.9 Hyperglycemia, unspecified; Z20.822 Contact with and (suspected) exposure to COVID-19; I10 Essential (primary) hypertension; Z88.8 Allergy status to other drugs, medicaments and biological substances; Z79.899 Other long term (current) drug therapy; Z90.49 Acquired absence of other specified parts of digestive tract; Z98.51 Tubal ligation status; Z79.51 Long term (current) use of inhaled steroids
CPT/HCPCS: 0202U; 36415; 36600; 71045; 80048; 80053; 82803; 82947; 83880; 84145; 85025; 93308; 93321; 94640; 94644; 94645; 94660; 94664; 94760; 94762; 96374; 96375; 96376; 99285-25; A9270; C9113; J0360; J1650; J1940; J2930; J3475

== ENCOUNTER 2023-07-02 14:30 | Inpatient (IN) | payer OTHER ==
[~2023-07-02] VITALS: Ht 167.6 cm; Wt 212.5 kg
[~2023-07-02 14:30] MED LIST changes: +BUME2 PO; +ERGO50000 PO; +LACT PO; +LEVO750 PO; +METF500 PO
[2023-07-02 15:05] LABS: BASOPHILS ABSOLUTE AUTO 0.04 K/mm3 (0.00-0.23); BASOPHILS PERCENT AUTO 0 % (0-2); EOSINOPHILS ABSOLUTE AUTO 0.12 K/mm3 (0.00-0.68); EOSINOPHILS PERCENT AUTO 1 % (0-6); Hematocrit 39.8 % (33.0-51.0); Hemoglobin 11.1 g/dL (11.5-16.0); IMMATURE GRAN ABSOLUTE AUTO 0.07 K/mm3 (0.00-0.10); IMMATURE GRAN PERCENT AUTO 1 % (0-1); LYMPHOCYTES ABSOLUTE AUTO 1.68 K/mm3 (0.84-5.20); LYMPHOCYTES PERCENT AUTO 13 % (21-46); MONOCYTES PERCENT AUTO 6 % (4-13); Mean Corpuscular HGB Conc 27.9 g/dL (31.5-36.5); Mean Corpuscular Volume 82 fL (80-100); Mean Platelet Volume 9.8 fL (9.1-12.4); NEUTROPHILS ABSOLUTE AUTO 10.18 K/mm3 (1.96-9.15); NEUTROPHILS PERCENT AUTO 80 % (41-73); Platelet Count 321 K/mm3 (150-400); RDW Coefficient Variation 19.6 % (11.7-14.2); RDW Standard Deviation 58.3 fL (35.1-46.3); Red Blood Cell Count 4.83 M/mm3 (3.80-5.20); White Blood Cell Count 12.79 K/mm3 (4.00-11.30)
[2023-07-02 15:58] LABS: Albumin, Blood 3.1 g/dL (3.4-5.0); Albumin/Globulin Ratio 0.9 (0.8-1.8); Bilirubin, Total 0.4 mg/dL (0.1-1.0); Bun/Creatinine Ratio 21.9 (12.0-20.0); Calcium, Blood 8.5 mg/dL (8.5-10.1); Creatinine, Blood 0.59 mg/dL (0.40-1.00); Globulin, Blood 3.4 g/dL (2.2-4.0); Potassium, Blood 4.2 mmol/L (3.5-5.5); Total Protein, Blood 6.5 g/dL (6.4-8.2)
[2023-07-02 23:05] LABS: Influenza A, PCR NEGATIVE (NEGATIVE); Influenza B, PCR NEGATIVE (NEGATIVE); Resp Syncytial Virus, PCR NEGATIVE (NEGATIVE); SARS-Cov-2 (COVID-19) PCR, MMC NEGATIVE (NEGATIVE)
[2023-07-03] VITALS (44 sets, daily range): BP systolic 122–196; BP diastolic 63–112
--- NOTE | 2023-07-03 01:20 | NUR ---
UPDATE PT TRANFERRED TO PCU 02 FROM ED. OXYGEN SATURATION MAINTAINED ABOVE 92% ON 6L VIA HIGH FLOW NC. PT FITTED FOR BIPAP BY RT FOR PT TO USE WHILE SLEEPING. HR STABLE. BP HYPERTENSIVE, MD NOTIFIED. SEE EMAR FOR ORDERS. PT REPORTING PAIN IN BLE. MEDICATIONS ORDERED PER MD, SEE EMAR. PT SBA TO BATHROOM. ALERT AND ORIENTED X 4. CALL LIGHT WITHIN REACH. WILL MEDICATE ONCE MEDICATIONS AVAILABLE FROM PHARMACY.
[2023-07-03 03:50] LABS: PCO2 Arterial 91.6 mmHg (35-45); PO2 Arterial 89.7 mmHg (80-100); pH Blood Arterial 7.22 (7.35-7.45)
--- NOTE | 2023-07-03 04:10 | NUR ---
UPDATE/TRANSFER AT 0330 ASSESSED PT W/VSS. PT ONLY WAKING MINIMALLY TO PHYSICAL STIMULI, PULLING AT BIPAP AND HITTING AT STAFF. SHOT EXAMINER AT BEDSIDE. PER DR. GUZMAN TRANSFER TO ICU. PT TRANSFERRED TO ICU 08 AT 0345. REPORT GIVEN TO DARIEL KUMAR. PT'S DAD UPDATED ON TRANSFER. ALL BELONGINGS WITH PATIENT.
[2023-07-03 05:42] LABS: PCO2 Arterial 73.7 mmHg (35-45); PO2 Arterial 88.1 mmHg (80-100); pH Blood Arterial 7.33 (7.35-7.45)
--- NOTE | 2023-07-03 06:35 | NUR ---
PT ARRIVED TO ICU AT 0345 TRANSFERRED FROM PCU DUE TO CHANGE IN MENTATION. PT ARRIVES SOMNOLENT, OPENS EYES TO PAINFUL STIMULI. DOES NOT FOLLOW COMMANDS. PRECEDEX ORDERED BUT NOT STARTED DUE TO SOMNOLENCE. BIPAP IN PLACE 22//50%. ABG DONE SHOWING PCO2 > 90. DR. SEPULVEDA TO BEDSIDE, ABG ORDERED IN 1 HOUR TO REEVALUATE THE NEED FOR POSSIBLE INTUBATION. REPEAT ABG SHOWED PCO2 DECREASED TO 70'S. PLAN IS TO REPEAT ABG AT 1000. LUNGS CTA. LASIX AND SOLUMEDROL GIVEN PER MD ORDER. NPO DUE TO SOMNOLENCE. VOIDED PRIOR TO TRANSFER PER REPORT. PIV X2, BOTH FLUSH WELL. PRECEDEX STARTED DUE TO PT PULLING OFF BIPAP AND THRASHING IN BED. PRECEDEX TITRATED TO 0.4, PT NOW COMPLIANT WITH BIPAP. BILAT WRIST RESTRAINTS IN PLACE.
[2023-07-03 06:39] LABS: BASOPHILS ABSOLUTE AUTO 0.03 K/mm3 (0.00-0.23); BASOPHILS PERCENT AUTO 0 % (0-2); EOSINOPHILS ABSOLUTE AUTO 0.02 K/mm3 (0.00-0.68); EOSINOPHILS PERCENT AUTO 0 % (0-6); Hematocrit 42.3 % (33.0-51.0); Hemoglobin 11.7 g/dL (11.5-16.0); IMMATURE GRAN ABSOLUTE AUTO 0.08 K/mm3 (0.00-0.10); IMMATURE GRAN PERCENT AUTO 1 % (0-1); LYMPHOCYTES ABSOLUTE AUTO 0.64 K/mm3 (0.84-5.20); LYMPHOCYTES PERCENT AUTO 6 % (21-46); MONOCYTES ABSOLUTE AUTO 0.16 K/mm3 (0.16-1.47); MONOCYTES PERCENT AUTO 1 % (4-13); Mean Corpuscular HGB 22.8 pg (26.0-34.0); Mean Corpuscular HGB Conc 27.7 g/dL (31.5-36.5); Mean Corpuscular Volume 83 fL (80-100); Mean Platelet Volume 9.7 fL (9.1-12.4); NEUTROPHILS ABSOLUTE AUTO 10.56 K/mm3 (1.96-9.15); NEUTROPHILS PERCENT AUTO 92 % (41-73); Platelet Count 316 K/mm3 (150-400); RDW Coefficient Variation 20.1 % (11.7-14.2); RDW Standard Deviation 58.9 fL (35.1-46.3); Red Blood Cell Count 5.13 M/mm3 (3.80-5.20); White Blood Cell Count 11.49 K/mm3 (4.00-11.30)
[2023-07-03 06:52] LABS: Albumin, Blood 3.5 g/dL (3.4-5.0); Albumin/Globulin Ratio 0.9 (0.8-1.8); Bilirubin, Total 0.4 mg/dL (0.1-1.0); Bun/Creatinine Ratio 19.5 (12.0-20.0); Calcium, Blood 8.7 mg/dL (8.5-10.1); Creatinine, Blood 0.67 mg/dL (0.40-1.00); Globulin, Blood 3.9 g/dL (2.2-4.0); Potassium, Blood 4.6 mmol/L (3.5-5.5); Total Protein, Blood 7.4 g/dL (6.4-8.2)
[2023-07-03 07:07] LABS: BASOPHILS PERCENT MAN 0 % (0-2); EOSINOPHILS ABSOLUTE MAN 0.11 K/mm3 (0.00-0.68); EOSINOPHILS PERCENT MAN 1 % (0-6); LYMPHOCYTES % ATYPICAL MANUAL 1 % (0-0); LYMPHOCYTES ABSOLUTE MAN 0.91 K/mm3 (0.84-5.20); LYMPHOCYTES PERCENT MAN 7 % (21-46); MONOCYTES ABSOLUTE MAN 0.11 K/mm3 (0.16-1.47); MONOCYTES PERCENT MAN 1 % (4-13); NEUTROPHILS ABSOLUTE MAN 10.34 K/mm3 (1.96-9.15); SEG NEUTROPHILS PERCENT MAN 90 % (41-73); TOTAL CELLS COUNTED 100
--- NOTE | 2023-07-03 09:21 | NUR ---
CARE OF PT ASSUMED AT 0700. PT SLEEPING, PRECEDEX AT 0.4MCG/KG/HR FOR BIPAP TOLERANCE. PT SOMNOLENT, DOES NOD HER HEAD WHEN SPOKEN TO. DID ASSIST WITH TURN WHEN PT TRANSFERED TO BARIATRIC BED, PT INCONTINENT OF XLARGE AMT OF URINE, EST AT LEAST 800CC'S. RESTRAINTS DC'D AT 0730. RT CHANGED BIPAP SETTINGS TO 22/14 35% FIO2. PT WEIGHED ON BED, 212.5KG. SATS >90%, LUNGS COARSE T/O. REPEAT ABG DUE AT 1000. DR SPICER IN AT 0830, FULL UPDATE GIVEN. DR CORDON TO CONSULT, AWARE AND IN UNIT.
--- NOTE | 2023-07-03 10:54 | NUR ---
PT HAD WOKEN UP AND PULLED BIPAP OFF. PT AWAKE AND ABLE TO CONVERSE APPROPRIATELY. ORAL CARE COMPLETED. BIPAP REPLACED. PT DID DESATURATE INTO MID 80'S AND TOOK >5MIN TO RECOVER OVER 90% ( BIPAP WAS OFF FOR LESS THAN 1 MIN). PT STATED SHE WAS ANXIOUS AND REQUESTED SOMETHING TO HELP WITH THE ANXIETY, PRECEDEX INCREASED FROM 0.4MCG TO 0.5MCG. VBG DRAWN. PT'S HEART RATE DROPPED VERY BRIEFLY FROM 60'S TO 36. BP STABLE. PT AWAKE IN ROOM W/O NEW SYMPTOMS. PRECEDEX DECREASED TO 0.3MCG.
[2023-07-03 11:01] LABS: Base Excess Venous 14.3 mmol/L; Bicarbonate Venous 35.7 mmol/L (24.0-30.0); PCO2 Venous 57.1 mmHg (38-42); pH Blood Venous 7.44 (7.34-7.37)
--- NOTE | 2023-07-03 15:08 | NUR ---
Attempted to visit with pt this morning, she was still resting comfortably on precedex. Spoke to pt's dad by phone, he reports he is the surface water technician CG for his , the pt's mother who has resulting brain damage after brain tumor was surgically removed. Pt's dad Dusty reports [facility] was supposed to adjust pt's cpap settings after most recent hospitalization, but they "never did". He also reports pt uses 02 @ 2L/NC continuously, but has not been using her cpap regularly due to settings being incorrect. He reports the pt has been "falling asleep sitting up, and sleeping most of the time", adding he is concerned about her current weight. He states a fear of pt dying if her health does not improved. Plan to see pt tomorrow after she is weaned off precedex.
--- NOTE | 2023-07-03 15:15 | NUR ---
PRECEDEX STOPPED. PT WIDE AWAKE. DR CORDON AT BEDSIDE. BIPAP REMOVED, O2 PLACED AT 4L VIA N/C. SATS 89-97%.
--- NOTE | 2023-07-03 18:14 | NUR ---
PT SLEPT UNTIL 1500 WITH BIPAP ON AND PRECEDEX AT 0.3MCG. PRECEDEX TURNED OFF AT 1500, PT IMMEDIATELY WOKE UP, AWAKE, ALERT, AND OX3 FROM THAT POINT ON. PT PLACED ON 4L VIA N/C, DR CORDON DECREASED O2 FURTHER TO 2L AT 1700. SATS HAVE REMAINED >90%, EVEN WITH ACTIVITY. PT UP TO TOILET SEVERAL TIMES TO VOID. ADA DIET ORDERED FOR PT. PT TO WEAR BIPAP TONIGHT. PT'S FAMILY TO BRING PT'S BIPAP IN SO THAT SETTINGS CAN BE ADJUSTED BY DR CORDON.
[2023-07-04] VITALS (14 sets, daily range): BP systolic 118–162; BP diastolic 71–125
[2023-07-04 03:34] LABS: Hematocrit 39.6 % (33.0-51.0); Hemoglobin 11.3 g/dL (11.5-16.0); Mean Corpuscular HGB 22.8 pg (26.0-34.0); Mean Corpuscular HGB Conc 28.5 g/dL (31.5-36.5); Mean Corpuscular Volume 80 fL (80-100); Mean Platelet Volume 9.6 fL (9.1-12.4); Platelet Count 326 K/mm3 (150-400); RDW Coefficient Variation 19.7 % (11.7-14.2); RDW Standard Deviation 56.2 fL (35.1-46.3); Red Blood Cell Count 4.96 M/mm3 (3.80-5.20); White Blood Cell Count 15.93 K/mm3 (4.00-11.30)
[2023-07-04 03:54] LABS: Anion Gap 6 mmol/L (6-16); Blood Urea Nitrogen 19 mg/dL (8-24); Bun/Creatinine Ratio 25.6 (12.0-20.0); CO2, Blood 34 mmol/L (21-32); Calcium, Blood 8.3 mg/dL (8.5-10.1); Chloride, Blood 100 mmol/L (98-108); Creatinine, Blood 0.74 mg/dL (0.40-1.00); Glomerular Filtration Rate 105 (60-); Glucose, Blood 246 mg/dL (70-99); Magnesium, Blood 1.9 mg/dL (1.6-2.4); Phosphorus, Blood 2.9 mg/dL (2.5-4.9); Potassium, Blood 3.8 mmol/L (3.5-5.5); Sodium, Blood 140 mmol/L (136-145)
[2023-07-04 05:31] LABS: PCO2 Arterial 55.4 mmHg (35-45); PO2 Arterial 73.7 mmHg (80-100); pH Blood Arterial 7.44 (7.35-7.45)
--- NOTE | 2023-07-04 06:37 | NUR ---
PATIENT AOX4. SR WITH STABLE BP. 2L NC WHILE AWAKE. PATIENT BROUGHT IN HOME TRILOGY, BUT REFUSED TO WEAR IT AFTER BEING SET UP WITH IT BY RESPIRATORY. SWITCHED TO HOSPITAL BIPAP, WHICH SHE PUT ON AT 0030 AND WORE WHILE SLEEPING. ABLE TO ABULATE TO AND FROM COMMODE WITH JUST SUPERVISION FROM RN.
--- NOTE | 2023-07-04 09:41 | NUR ---
CARE OF PT ASSUMED AT 0700. PT SLEEPING WITH BIPAP ON, NOCT RN STATED PT DID NOT FALL ASLEEP UNTIL AROUND 0430; PT SLEPT IN UNTIL 0930. PT WOKE UP ALERT AND OX3. PT SBA TO CHAIR. SUNSHINE >95% ON 2L VIA N/C. LUNGS CLEAR T/O. PT DENIES COMPLAINTS. UP EATING BREAKFAST NOW.
--- NOTE | 2023-07-04 11:12 | NUR ---
PT OOB TO CHAIR FOR BREAKFAST, TOLERATED WELL. DR CORDON IN TO SEE PT. NEW SRIPT SENT TO [facility] FOR TRILOGY SETTING CHANGES. PT NOW PCU STATUS.
--- NOTE | 2023-07-04 13:19 | NUR ---
1310 THIS RN AND DARIEL SCOTT TOOK OVER FOR CARE FOR PT. PT TRANSFERRED FROM ICU. PT RESTING IN CHAIR AND CALL LIGHT WITHIN REACH.
--- NOTE | 2023-07-04 13:40 | NUR ---
PT TRANSFERED TO [facility] 15 AT 1245 VIA WHEELCHAIR IN STABLE CONDITION.
--- NOTE | 2023-07-04 17:55 | NUR ---
PT SUMMARY: PT ARRIVED TO PCU 15 VIA WHEELCHAIR FROM ICU REPORT RECEIVED FROM VIDAL VIEIRA, PT WAS ON RA UPON ARRIVAL, 1L OF O2 PRN, PT HAS BEEN REFUSING O2 PT WILL DESATS TO HIGH 70'S WITH EXERTION OR WHEN MOVING AROUND IN BED, PT RECOVERS BACK QUICK O2 RANGES 88-91% ON RA PT STATED THATS HE BASELINE AT HOME THEN SHE GOES BACK UP ON O2 AT REST. TRILOGY WAS DELIVERED IN THE ROOM, RT WAS CALLED TO SET UP TRILOGY FOR TONIGHT DR CORDON WANTED PT TO TRY TRILOGY WITH NEW SETTINGS PT MADE AWARE AND WAS AGREEABLE. PT SBA FOR TRANSFERSMOVES HERSELF INDEPENDENTLY IN BED. PT WAS EXPEFCTING TO GO HOME TOMORROW. PT DENIES ANY PAIN OR ANY OTHER COMPLAINS. PT IN BED RESTING DOING COLOR BOOK ACTIVITY. PT HAS BEEN COOPERATIVE WITH CARES, PLEASANT AND COHERENT. PT CALLS APPROPRIATELY, CALL LIGHTS IN REACH WILL REPORT TO ONCOMING SHIFT
[2023-07-05 05:04] VITALS: BP 147/75
--- NOTE | 2023-07-05 06:54 | NUR ---
SHIFT SUMMARY PATIENT ALERT AND ORIENTED X4, INDEPENDENT IN ROOM. MEDICATED PER EMAR FOR PAIN. PATIENT WORE TRILOGY WITH 3 LITER BLEED ALL NIGHT, DESATED TO THE 70'S WHEN SHE TOOK THE MASK OFF IN HER SLEEP. PATIENT DENIES CHEST PAIN AND SHORTNESS OF BREATH. VITAL SIGNS STABLE. NO ACUTE ISSUES NOTED OVERNIGHT. WILL CONTINUE TO MONITOR. CALL LIGHT WITHIN REACH.
[2023-07-05 07:38] VITALS: BP 142/82
--- NOTE | 2023-07-05 08:34 | NUR ---
AM NOTE: PATIENT ALERT AND ORIENTED X4. DENIES NUMBNESS/TINGLING. UP TO BATHROOM SBA. SITTING IN RECLINER THIS AM FOR BREAKFAST. WEARING TRILOGY LAST NIGHT, PATIENT REPORTS NO ISSUES. ON ROOM AIR THIS AM SATING 90-91%. THIS RN EDUCATED ABOUT POSSIBLE NEED FOR PRN 1-2L O2, PATIENT REFUSES PRN O2 THIS AM. OCCASIONAL COUGH, NONPRODUCTIVE. SOB WHEN UP TO BATHROOM. LUNGS SOUNDING CLEAR AND DIM. TELE SHOWING SR WITH HR 70-90'S. BP STABLE. EDEMA NOTED TO ABDOMIN. PPP. DENIES CHEST PAIN/PRESSURE/PALPITATIONS. BOWEL TONES PRESENT. EATING AND VOIDING WNL. DENIES ABDOMINAL PAIN/NAUSEA. SKIN OVERALL C/D/I. YEAST NOTED IN ABDOMINAL FOLDS/PANNUS, CLEANED AND POWEDER APPLIED. REDNESS/EDEMA NOTED TO ABDOMIN. IV SALINE LOCKED. PATIENT WATCHING TV AT THIS TIME IN RECLINER AND DENIES NEEDS. CALL LIGHT IN REACH.
[2023-07-05 11:07] VITALS: BP 153/87
[2023-07-05] MEDS ORDERED: ALBU2.5V5 INH (11:49)
[2023-07-05] MEDS ORDERED: MICONAZOLE NITRATE TOP (11:52)
--- NOTE | 2023-07-05 14:39 | NUR ---
DISCHARGE: NO ACUTE CHANGES. PATIENT DISCHARGE INSTRUCTIONS REVIEWED. MEDICATIONS FAXED TO [facility]. FOLLOW UP APPOINTMENTS REVIEWED. PATIENT LEFT UNIT WITH ALL PERSONAL BELONGINGS INCLUDING HOME 02, DELIVERED BY [facility]. DISCHARGE PACKET SENT HOME WITH PATIENT. IV REMOVED WNL. PATIENT EDUCATED ON HOME OXYGEN.
== END 2023-07-05 14:25 | disposition home or self-care (01) | DRG 189 ==
LOC: ER 14:30 → ICUE 14:31 → PCU 14:31 → ICUE 07-03 03:56 → PCU 07-04 12:56
PROVIDERS: Emergency Medicine; Family Medicine; Internal Medicine; Student in an Organized Health Care Education/Training Program; ADMIT Internal Medicine
PROC: 5A09457 Assistance with Respiratory Ventilation, 24-96 Consecutive Hours, Continuous Positive Airway Pressure (ICD-10-PCS; principal; 2023-07-03)
PROC: 4A133R1 Monitoring of Arterial Saturation, Peripheral, Percutaneous Approach (ICD-10-PCS; 2023-07-03)
DX: J96.21 Acute and chronic respiratory failure with hypoxia (principal); G92.8 Other toxic encephalopathy; J98.11 Atelectasis; J84.9 Interstitial pulmonary disease, unspecified; J96.22 Acute and chronic respiratory failure with hypercapnia; G47.33 Obstructive sleep apnea (adult) (pediatric); I27.20 Pulmonary hypertension, unspecified; Z20.822 Contact with and (suspected) exposure to COVID-19; J44.9 Chronic obstructive pulmonary disease, unspecified; I10 Essential (primary) hypertension; F41.9 Anxiety disorder, unspecified; F32.A Depression, unspecified; K21.9 Gastro-esophageal reflux disease without esophagitis; M79.7 Fibromyalgia; E66.01 Morbid (severe) obesity due to excess calories; Z90.49 Acquired absence of other specified parts of digestive tract; Z98.51 Tubal ligation status; Z79.51 Long term (current) use of inhaled steroids; Z79.84 Long term (current) use of oral hypoglycemic drugs; Z79.899 Other long term (current) drug therapy; Z88.8 Allergy status to other drugs, medicaments and biological substances; Z99.81 Dependence on supplemental oxygen; Z91.199 Patient's noncompliance with other medical treatment and regimen due to unspecified reason
CPT/HCPCS: 0241U; 36415; 36600; 71046; 71260; 80053; 80069; 82803; 82947; 83605; 83690; 83735; 83880; 84484; 85025; 85027; 87070; 87205; 93005; 93010; 94640; 94660; 94664; 94761; 94762; 96365-59; 96367; 96372; 96375; 99285-25; A9270; C9113; G0378; J0690; J0696; J1650; J1940; J2930; J7050; J7512; Q9967

== ENCOUNTER → 2024-03-14 | Outpatient (CLI) | payer OTHER ==
[~2024-03-14] MED LIST changes: +ALBU2.5V5 INH; +MICONAZOLE NITRATE TOP
== END ==
LOC: LAB SHORT 17:01 → LAB 17:01
DX: N39.0 Urinary tract infection, site not specified (principal)
CPT/HCPCS: 87077; 87086; 87186

== ENCOUNTER 2024-05-27 09:25 | Emergency (ER) | payer OTHER ==
[~2024-05-27] VITALS: Ht 162.6 cm; Wt 129.7 kg
[2024-05-27] MEDS ORDERED: NS 1,000 ML IV SCH (10:20)
[2024-05-27] MEDS ORDERED: Ondansetron HCl 2 MG / ML 2ML Vial IV ONE (10:20)
[2024-05-27] MEDS ORDERED: Pregabalin 75 MG Cap PO ONE (10:25)
[2024-05-27] MEDS ORDERED: Pregabalin 50 MG Capsule PO ONE (10:40)
[2024-05-27 10:43] LABS: BASOPHILS ABSOLUTE AUTO 0.05 K/mm3 (0.00-0.23); BASOPHILS PERCENT AUTO 0 % (0-2); EOSINOPHILS ABSOLUTE AUTO 0.06 K/mm3 (0.00-0.68); EOSINOPHILS PERCENT AUTO 0 % (0-6); Hemoglobin 13.4 g/dL (11.5-16.0); IMMATURE GRAN ABSOLUTE AUTO 0.05 K/mm3 (0.00-0.10); IMMATURE GRAN PERCENT AUTO 0 % (0-1); LYMPHOCYTES ABSOLUTE AUTO 2.32 K/mm3 (0.84-5.20); LYMPHOCYTES PERCENT AUTO 16 % (21-46); MONOCYTES ABSOLUTE AUTO 0.75 K/mm3 (0.16-1.47); MONOCYTES PERCENT AUTO 5 % (4-13); Mean Corpuscular HGB 25.7 pg (26.0-34.0); Mean Corpuscular HGB Conc 31.9 g/dL (31.5-36.5); Mean Corpuscular Volume 81 fL (80-100); Mean Platelet Volume 10.9 fL (9.1-12.4); NEUTROPHILS ABSOLUTE AUTO 11.18 K/mm3 (1.96-9.15); NEUTROPHILS PERCENT AUTO 78 % (41-73); Platelet Count 288 K/mm3 (150-400); RDW Coefficient Variation 15.6 % (11.7-14.2); RDW Standard Deviation 45.1 fL (35.1-46.3); Red Blood Cell Count 5.22 M/mm3 (3.80-5.20); White Blood Cell Count 14.41 K/mm3 (4.00-11.30)
[2024-05-27] MEDS ORDERED: PREG300 PO (10:48)
[2024-05-27 11:16] LABS: Albumin, Blood 3.9 g/dL (3.4-5.0); Albumin/Globulin Ratio 1.1 (0.8-1.8); Bilirubin, Total 0.7 mg/dL (0.1-1.0); Bun/Creatinine Ratio 10.7 (12.0-20.0); Creatinine, Blood 0.85 mg/dL (0.40-1.00); Globulin, Blood 3.4 g/dL (2.2-4.0); Potassium, Blood 3.5 mmol/L (3.5-5.5); Total Protein, Blood 7.3 g/dL (6.4-8.2)
[2024-05-27] MEDS ORDERED: Ketorolac Tromethamine 15mg Vial IV ONE (12:20)
[2024-05-27] MEDS ORDERED: PREG200 PO (13:07)
[2024-05-27] MEDS ORDERED: ONDA4ODT MM (13:07)
[2024-05-27 13:45] VITALS: BP 152/64
== END 2024-05-27 13:54 | disposition home or self-care (01) ==
LOC: ER 09:25
PROVIDERS: Physician Assistant
DX: R10.9 Unspecified abdominal pain (principal); R11.2 Nausea with vomiting, unspecified; K21.9 Gastro-esophageal reflux disease without esophagitis; J45.909 Unspecified asthma, uncomplicated; E66.2 Morbid (severe) obesity with alveolar hypoventilation; I10 Essential (primary) hypertension; Z79.84 Long term (current) use of oral hypoglycemic drugs; Z79.51 Long term (current) use of inhaled steroids; Z79.899 Other long term (current) drug therapy; Z88.8 Allergy status to other drugs, medicaments and biological substances
CPT/HCPCS: 80053; 83690; 84703; 85025; 96361; 96374; 96375; 99284-25; A9270; J1885; J2405; J7030